=== PATIENT | female | born 1975 | race Two or more races ===

== ENCOUNTER 2019-03-20 14:48 | Emergency (ER) | payer OTHER ==
[~2019-03-20] VITALS: Ht 162.6 cm; Wt 68.0 kg
[2019-03-20 14:50] VITALS: BP 118/79
[2019-03-20] MEDS ORDERED: ALBUTEROL SULF 2.5 MG/0.5ML(0.5%) NEB SOLN NEB ONE (15:00)
[2019-03-20] MEDS ORDERED: IPRATROPIUM BROM 0.5 MG/2.5ML INH SOL NEB ONE (15:00)
== END 2019-03-20 16:07 | disposition home or self-care (01) ==
LOC: ER 15:09 → MERGE 15:09 → ER 16:06
DX: J45.901 Unspecified asthma with (acute) exacerbation (principal); Z76.0 Encounter for issue of repeat prescription
CPT/HCPCS: 94640; 99283; J7611; J7644